=== PATIENT | male | born 1970 | race Caucasian/White ===

== ENCOUNTER → 2018-03-08 08:33 | Outpatient (CLI) | payer MEDICAID, SELFPAY ==
[2018-03-08 11:02] LABS: Basophils # 0.1 K/mm3 (0-0.2); Basophils % 0.5 % (0.1-2.0); Eosinophils # 0.3 K/mm3 (0.0-0.4); Eosinophils % 2.7 % (0.1-12.0); Hematocrit 45.2 % (42.0-52.0); Hemoglobin 14.3 g/dL (14.1-18.0); Mean Corpuscular HGB Conc 31.6 g/dL (31.8-35.4); Mean Corpuscular Hemoglobin 25.1 pg (27.0-31.2); Mean Corpuscular Volume 79.4 fl (80-94); Mean Platelet Volume 6.3 fl (7.4-10.4); Monocytes # 0.8 K/mm3 (0.1-1.0); Monocytes % 7.4 % (1.7-9.3); Neutrophils # 5.1 K/mm3 (1.8-7.8); Neutrophils % 50.4 % (37.0-80.0); Platelet Count 276 K/mm3 (142-424); Red Cell Distribution Width 13.9 % (11.5-17.5); White Blood Count 10.1 K/mm3 (4.8-10.8)
[2018-03-08 13:03] LABS: Alanine Aminotransferase 75 U/L (12-78); Albumin Level 3.8 gm/dL (3.4-5.0); Albumin/Globulin Ratio 1.3 (1.1-1.8); Alkaline Phosphatase 94 U/L (46-116); Anion Gap 13.4 mEq/L (5-15); Aspartate Amino Transferase 36 U/L (15-37); Bilirubin,Total 0.3 mg/dL (0.2-1.0); Blood Urea Nitrogen 13 mg/dL (7-18); Calcium 8.6 mg/dL (8.5-10.1); Carbon Dioxide 27 mmol/L (21.0-32.0); Chloride 105 mmol/L (98-107); Cholesterol 204 mg/dL (140-200); Creatinine,Serum 0.67 mg/dL (0.70-1.30); Estimated Glomerular Filt Rate 128 ml/min (>60); GFR (African American) 155 ML/MIN (>60); Globulin 2.9 gm/dl (1.3-3.2); Glucose 92 mg/dL (74-106); HDL Cholesterol 41 mg/dL (27-67); LDL Cholesterol 116 mg/dL (0-130); Potassium 4.4 mmoL/L (3.5-5.1); Sodium 141 mmol/L (136-145); Thyroid Stimulating Hormone 1.68 uIU/ml (0.358-3.740); Total Protein,Serum 6.7 gm/dL (6.4-8.2); Triglycerides 235 mg/dL (30-200); VLDL Cholesterol 47 mg/dL (0-40)
== END ==
PROVIDERS: PCP Nurse Practitioner Family; Visit Provider Nurse Practitioner Family
DX: G89.29 Other chronic pain (principal); I10 Essential (primary) hypertension; M54.9 Dorsalgia, unspecified; R53.83 Other fatigue
CPT/HCPCS: 80053; 80061; 84436; 84443; 85025

== ENCOUNTER → 2021-11-30 06:35 | Outpatient (CLI) | payer OTHER, SELFPAY ==
[2021-11-29 19:11] LABS: Basophils # 0.1 K/mm3 (0-0.2); Basophils % 0.9 % (0.1-2.0); Eosinophils # 0.2 K/mm3 (0.0-0.4); Eosinophils % 2.6 % (0.1-12.0); Hematocrit 50.5 % (42.0-52.0); Hemoglobin 15.9 g/dL (14.1-18.0); Lymphocytes # 2.2 K/mm3 (0.7-4.5); Mean Corpuscular HGB Conc 31.5 g/dL (31.8-35.4); Mean Corpuscular Hemoglobin 25.4 pg (27.0-31.2); Mean Corpuscular Volume 80.7 fl (80-94); Mean Platelet Volume 7.1 fl (7.4-10.4); Monocytes # 0.5 K/mm3 (0.1-1.0); Monocytes % 7.6 % (1.7-9.3); Neutrophils % 56.8 % (37.0-80.0); Platelet Count 264 K/mm3 (142-424); Red Blood Count 6.26 M/mm3 (4.60-6.20)
[2021-11-29 19:17] LABS: Alanine Aminotransferase 46 U/L (12-78); Albumin Level 4.2 g/dl (3.5-5.0); Albumin/Globulin Ratio 1.6 (1.1-1.8); Alkaline Phosphatase 87 U/L (38-126); Anion Gap 9.5 mEq/L (5-15); Aspartate Amino Transferase 39 U/L (17-59); Bilirubin,Total 0.2 mg/dl (0.2-1.3); Blood Urea Nitrogen 17 mg/dl (9-20); Calcium 9.3 mg/dl (8.4-10.2); Carbon Dioxide 28 mmol/L (22.0-30.0); Chloride 105 mmol/L (98-107); Chol/HDL Ratio 5.3 (1-3.5); Cholesterol 244 mg/dl (140-200); Estimated Glomerular Filt Rate 120 ml/min (>60); GFR (African American) 145 ML/MIN (>60); Globulin 2.7 g/dL (1.3-3.2); Glucose 184 mg/dl (74-100); HDL Cholesterol 46 mg/dl (40-60); Potassium 4.5 mmoL/L (3.5-5.1); Sodium 138 mmol/L (136-145); Total Protein,Serum 6.9 g/dl (6.3-8.2); Triglycerides 327 mg/dl (30-150); VLDL Cholesterol 65 mg/dL (0-40)
[2021-11-29 19:29] LABS: Direct LDL Cholesterol 138.01 mg/dL (100-129)
[2021-11-29 19:51] LABS: Hemoglobin A1C 6.3 % (4.0-6.0)
== END ==
PROVIDERS: Visit Provider Nurse Practitioner Family
DX: R53.83 Other fatigue (principal); E11.9 Type 2 diabetes mellitus without complications; E78.5 Hyperlipidemia, unspecified; I10 Essential (primary) hypertension
CPT/HCPCS: 80053; 80061; 83036; 84443; 85025

== ENCOUNTER → 2021-12-05 12:50 | Outpatient (CLI) | payer OTHER, SELFPAY ==
--- NOTE | 2021-12-05 12:57 | CA_ITS ---
APPROVED REPORT EXAM: Comprehensive 2D, Doppler, and color-flow Echocardiogram [employer] Loader: Fatemeh Hopkins CRT Ht: 6 ft 4 in Wt: 335lbs BSA: 2.76 BP: 140/98 mmHg Indications: sob, asthma, smoker, htn 2D Dimensions LVOT 2.19 cm (M/F) 1.5-2.5 LA Volume 30.60 mL LA Volume Index 11.10 mL/m2 (M/F) 16-34 M-Mode Dimensions RVDd 2.37 cm (0.9-2.6) LA Diam 3.20 cm (1.9-4.0) LVDd 5.07 cm (3.5-5.7) Ao Diam 4.29 cm (2.0-3.7) LVDs 3.46 cm (3.5-5.7) IVSd 2.21 cm (0.6-1.1) PWd 0.89 cm (0.6-1.1) EF (Teich) 59.50% FS 31.80% EDV (Teich) 122.10 mL ESV (Teich) 49.50 mL LV Diastology E Decel Time 150.00 (160-240 msec) E/A Ratio 0.66 MED E' 5.30 (< 7 cm/sec) MED A' 10.00 cm/s E'/MED E' Ratio 11.72 (>14) LAT E' 8.00 (<10 cm/sec) LAT A' 10.30 cm/s E/LAT E' Ratio 7.76 (>14) Aortic Valve AO Peak GR. 10.00 mmHg Mitral Valve MV E Max Venkatesh. 62.00 (40-130 cm/s) MV A Velocity 94.00 (40-130 cm/s) E/A Ratio 0.66 MV Decel. Time 150.00 (160-240 ms) MV PHT 44.00 ms Pulmonary Valve PV Peak Velocity 156.00 (50-150 cm/s) Tricuspid Valve TR P. Velocity 183.00 cm/s RAP Estimate 10.00 mmHg RVSP 23.30 mmHg Left Ventricle Left atrium is mildly enlarged, left ventricle normal size mild concentric left ventricular hypertrophy, estimated ejection fraction 55% with no regional wall motion abnormality, grade 1 diastolic dysfunction seen without tissue Doppler evidence of raise left atrial pressure. Right Ventricle Right atrium and right ventricle are normal size and contractility. Aortic Valve Aortic valve is grossly normal, there is no aortic stenosis or aortic insufficiency. Mitral Valve Mitral valve grossly normal, there is trace mitral regurgitation. Tricuspid Valve Tricuspid valve grossly normal, there is trace tricuspid regurgitation, tricuspid regurgitation jet velocity is inadequate for calculation of the right ventricular systolic pressure. Pulmonic Valve Pulmonic valve is poorly visualized. Great Vessels Aortic root is normal size. Inferior vena cava is poorly visualized. Pericardium No significant pericardial effusion noted. Conclusion 1. Technically very difficult study because of the patient's factor and poor acoustic windows. 2. Normal left ventricular size preserved left ventricular systolic function, estimated ejection fraction 55% with no regional wall motion abnormality, grade 1 diastolic dysfunction seen without tissue Doppler evidence of raise left atrial pressure. 3. Trace mitral and tricuspid regurgitation. 4. No significant pericardial effusion. 5. Inferior vena cava is poorly visualized. Electronically signed by : Hank Chavez MD 12/06/2021 06:49:33
== END ==
PROVIDERS: Visit Provider Nurse Practitioner Family
DX: R06.02 Shortness of breath (principal)
CPT/HCPCS: 93306

== ENCOUNTER → 2021-12-20 14:14 | Outpatient (CLI) | payer OTHER, SELFPAY ==
--- NOTE | 2021-12-20 14:19 | XR_ITS ---
FINAL REPORT CLINICAL HISTORY: R Knee pain FINDINGS: RIGHT KNEE: Four views of the right knee obtained. There is no acute fracture or dislocation. There are 3 screws in the proximal tibia. Two of the screws are transversely oriented probably to secure a tibial plateau fracture. There is significant narrowing of the medial compartment joint space. There is subchondral sclerosis consistent with moderately advanced osteoarthritis. IMPRESSION: Postoperative changes with no acute fracture. Subchondral sclerosis consistent with moderately advanced osteoarthritis. Reviewed, Interpreted and Dictated by Brett Nicolas MD Transcribed by Nicol Mosquera Authenticated and [facility]
== END ==
PROVIDERS: PCP Nurse Practitioner Family; Visit Provider Nurse Practitioner Family
DX: M25.561 Pain in right knee (principal)
CPT/HCPCS: 73564

== ENCOUNTER → 2023-04-12 13:19 | Outpatient (CLI) | payer OTHER, SELFPAY ==
[2023-04-12 15:12] LABS: Basophils # 0.1 K/mm3 (0-0.2); Basophils % 0.7 % (0.1-2.0); Eosinophils # 0.2 K/mm3 (0.0-0.4); Eosinophils % 2.1 % (0.1-12.0); Hematocrit 49.3 % (42.0-52.0); Hemoglobin 15.8 g/dL (14.1-18.0); Lymphocytes # 2.8 K/mm3 (0.7-4.5); Lymphocytes % 34.4 % (10-50); Mean Corpuscular HGB Conc 32.1 g/dL (31.8-35.4); Mean Corpuscular Hemoglobin 25.6 pg (27.0-31.2); Mean Corpuscular Volume 79.9 fl (80-94); Mean Platelet Volume 7.5 fl (7.4-10.4); Monocytes # 0.6 K/mm3 (0.1-1.0); Monocytes % 7.5 % (1.7-9.3); Neutrophils # 4.5 K/mm3 (1.8-7.8); Neutrophils % 55.2 % (37.0-80.0); Platelet Count 263 K/mm3 (142-424); Red Blood Count 6.17 M/mm3 (4.60-6.20); White Blood Count 8.1 K/mm3 (4.8-10.8)
[2023-04-12 16:15] LABS: Alanine Aminotransferase 57 U/L (12-78); Albumin Level 4.3 g/dl (3.5-5.0); Albumin/Globulin Ratio 1.5 (1.1-1.8); Alkaline Phosphatase 73 U/L (38-126); Anion Gap 10.4 mEq/L (5-15); Aspartate Amino Transferase 41 U/L (17-59); Bilirubin,Total 0.4 mg/dl (0.2-1.3); Blood Urea Nitrogen 22 mg/dl (9-20); Calcium 8.6 mg/dl (8.4-10.2); Carbon Dioxide 26 mmol/L (22.0-30.0); Chloride 103 mmol/L (98-107); Chol/HDL Ratio 4.7 (1-3.5); Cholesterol 242 mg/dl (140-200); Estimated Glomerular Filt Rate 102 ml/min (>60); GFR (African American) 123 ML/MIN (>60); Globulin 2.8 g/dL (1.3-3.2); Glucose 122 mg/dl (74-100); HDL Cholesterol 51 mg/dl (40-60); Potassium 4.4 mmoL/L (3.5-5.1); Sodium 135 mmol/L (136-145); Total Protein,Serum 7.1 g/dl (6.3-8.2); Triglycerides 209 mg/dl (30-150); VLDL Cholesterol 42 mg/dL (0-40)
[2023-04-12 16:26] LABS: Direct LDL Cholesterol 144.75 mg/dL (100-129)
[2023-04-12 16:34] LABS: 25-OH Vitamin D, Total 35.7 ng/mL (30-100)
[2023-04-12 16:47] LABS: Prostate Specific Ag Screen 1.7 ng/ml (0.0-4.0); Thyroid Stimulating Hormone 1.27 uIU/mL (0.465-4.68)
[2023-04-12 17:01] LABS: Hemoglobin A1C 6.6 % (4.0-6.0)
== END ==
LOC: LAB.DROPOF 04-25 13:19
PROVIDERS: PCP Nurse Practitioner Family; Visit Provider Nurse Practitioner Family
DX: R06.02 Shortness of breath (principal); I10 Essential (primary) hypertension; E55.9 Vitamin D deficiency, unspecified; Z12.5 Encounter for screening for malignant neoplasm of prostate; Z79.899 Other long term (current) drug therapy
CPT/HCPCS: 36415; 80053; 80061; 82306; 83036; 84443; 85025; G0103

== ENCOUNTER → 2023-04-12 14:53 | Outpatient (CLI) | payer OTHER, SELFPAY | LOC: LAB 14:54 | PROVIDERS: PCP Nurse Practitioner Family; Visit Provider Nurse Practitioner Family | DX: E55.9 Vitamin D deficiency, unspecified (principal) ==

== ENCOUNTER 2024-04-20 09:48 | Emergency (ER) | payer OTHER, SELFPAY ==
[2024-04-20] VITALS (10 sets, daily range): BP systolic 124–145; BP diastolic 71–91; PULSE 82–110; RESP 18; TEMP 36.7–36.8; O2SAT 91–96; BMI 44.4
--- NOTE | 2024-04-20 09:52 | ECG_ITS ---
APPROVED REPORT Exam: Resting ECG HR:110 bpm ECG Measurements Heart Rate 110 AXES WY 136 P 69 QRSd 92 QRS 69 QT 333 T 62 QTc 398 Conclusion SINUS TACHYCARDIA ABNORMAL RHYTHM ECG UNCONFIRMED REPORT Electronically signed by : PEARL MALDONADO, 04/22/2024 07:08:13
--- NOTE | 2024-04-20 10:05 | XR_ITS ---
PROCEDURE INFORMATION: Exam: XR Chest Exam date and time: 04/20/2024 10:26 AM Age: 54 years old Clinical indication: Shortness of breath; Additional info: SOA, lifetime smoker TECHNIQUE: Imaging protocol: Radiologic exam of the chest. Views: 1 view. COMPARISON: No relevant prior studies available. FINDINGS: Lungs: No evidence of pneumonia or interstitial edema. Pleural spaces: Unremarkable. No pleural effusion. No pneumothorax. Heart/Mediastinum: Unremarkable. No cardiomegaly. Bones/joints: Unremarkable. IMPRESSION: No evidence of pneumonia or interstitial edema.
[2024-04-20 10:06] LABS: VBG Base Excess -5.8 mmol/L (-2.4-2.3); VBG HCO3 20.2 mmol/L (23-30); VBG PCO2 39.3 mmol/L (35-51); VBG PH 7.33 mmol/L (7.31-7.41); VBG PO2 111.3 mmol/L (28-40); VBG Total CO2 21.4 mmol/L (23-27)
[2024-04-20 10:07] LABS: Lactate Venous 5.9 mmol/L (0.4-2.0)
--- NOTE | 2024-04-20 10:07 | PC.NURSE ---
aware of vbg lactic of 5.9
--- NOTE | 2024-04-20 10:08 | PC.NURSE ---
I rounded on the pt. He complains of a MENDOZA, I notified Dr. Catalan. She is going to order medication. no other needs voiced. call tamez in reach.
[2024-04-20 10:11] LABS: Coronavirus 19, PCR Not Detected (NotDetected); Influenza A, PCR Not Detected (NotDetected); Influenza B, PCR Not Detected (NotDetected)
[2024-04-20 10:11] LABS: Microscopic, Urine URINE MICROSCOPIC (MICROSCOPIC)
[2024-04-20] MEDS: LACTATED RINGERS 1000ML 1,000 ML 999 ML IV (10:11)
--- NOTE | 2024-04-20 10:11 | ED_ITS ---
Discharge Plan Disposition Patient Disposition: Admitted Condition: Good Prescriptions Prescriptions: No Action lisinopril 20 mg tablet 20 mg PO DAILY Qty: 30 2RF hydrochlorothiazide 25 mg tablet 25 mg PO DAILY fluticasone furoate-vilanterol [Breo Ellipta] 100-25 mcg/dose blister with device 1 inh inhalation DAILY Clinical Impressions Clinical Impression: Pulmonary embolism Qualifiers: Pulmonary embolism type: single subsegmental (without acute cor pulmonale) Q ualified Code(s): I26.93 - Single subsegmental thrombotic pulmonary embolism without acute cor pulmonale Instructions Patient Instructions: DI for Altered Mental Status Print Language Print Language: Occitan Discharge ED Provider: Keyla Catalan General Adult HPI General Chief complaint: Altered Mental Status Stated complaint: unresponsive Time Seen by Provider: 04/20/24 09:50 Mode of Arrival: EMS Source of Information: Patient, Parent(s) and EMS Limitations: No Limitations Description of Symptoms (Recalled from ER Triage Doc. by RN): PT WAS UNRESPONSIVE THIS MORNING. MOTHER ATTEMPTED TO WAKE HIM UP MULTIPLE TIMES UNSUCCESSFULLY. History of Present Illness HPI narrative: Patient is a 54-year-old male presenting with altered mental status. Per EMS and patient's mother at bedside, EMS was called to the home when the patient would not wake up. Mom stated that she broke into the patient's room this morning after hearing a loud thud. She stated that he was snoring loudly and still in bed. She shook him and was able to wake him for approximately 5 minutes per her estimation. She then called EMS who had additional difficulty awakening the patient. Per EMS, patient had an oxygen saturation of 89% on room air on arrival. Patient quickly came up to 100% on a non-rebreather. Patient reportedly has a history of asthma and hypertension. Patient states he takes aspirin daily and took his morning medications today. Patient states he has otherwise been in his normal state of health and does not require oxygen at night. Patient denies headache, fever, chills, chest pain, shortness of breath, abdominal pain, nausea/vomiting, bowel or bladder dysfunction. Related Data Home Medications ?Medication ?Instructions ?Recorded ?Confirmed fluticasone furoate 100 1 inh inhalation DAILY 04/20/24 04/20/24 mcg-vilanterol 25 mcg/dose inhalation powder (Breo Ellipta) hydrochlorothiazide 25 mg tablet 25 mg PO DAILY 04/20/24 04/20/24 Previous Rx's ?Medication ?Instructions ?Recorded lisinopril 20 mg tablet 20 mg PO DAILY #30 tabs 04/15/24 Allergies Allergy/AdvReac Type Severity Reaction Status Date / Time Cephalosporins Allergy Verified 04/15/24 14:46 [facility] Disclaimer: The information contained in this section may have been updated after the patient was seen, as this information can be updated by other users. Medical History (Updated 04/20/24 @ 13:12 by Keyla Catalan MD) Right anterior knee pain Instability of left shoulder joint Upper respiratory tract infection SOB (shortness of breath) HTN (hypertension) Social History Smoking Status: Current every day smoker tobacco type: cigarettes packs per day: 1 alcohol intake: never substance use type: denies use current occupational status: disabled Travel in the last 8 weeks: None Have you lived/traveled outside US in past 30 days?: No Contact w/someone who lives/traveled outside US past 30 days?: No Exposure to someone with infectious disease in past 14 days?: No Do you have a fever (greater than 100.4 F or 38 C)?: No Have you tested positive for COVID-19: No Exposed to someone with COVID-19 in past 14 days?: No Do you have a sore throat?: No Do you have a cough?: No Do you have any weakness?: No Do you have any diarrhea?: No Are you experiencing any unusual bleeding?: No Do you have any muscle aches/pain?: No Do you have any abdominal pain?: No Are you experiencing loss of taste or smell?: No Other Medical History Have you received the Pneumonia Vaccine: Yes ROS Obtained: Yes All systems reviewed & no additional complaints except as documented Physical Exam General General appearance: alert, in no apparent distress and obese Head Head exam: atraumatic and normocephalic Eye Eye exam: Present PERRL and EOMI Neck Neck exam: Present full ROM Chest Chest inspection: Present normal inspection Respiratory Respiratory exam: Present normal lung sounds bilaterally; Absent respiratory distress, wheezes or stridor Cardiovascular Cardiovascular exam: Present regular rate and normal rhythm; Absent JVD Abdominal Exam Abdominal exam: Present soft and normal bowel sounds; Absent distention, tenderness or guarding Extremities Exam Extremities exam: Present normal inspection Neurological Exam Neurological exam: Present alert and oriented X3 Medical Decision Making Medical Records Screening: Per USPSTF and CDC recommendations, given the prevalence of disease in our region, it is our hospital?s policy to screen for HIV and viral Hepatitis for all patients aged 18 and over and those with ongoing risk factors. Cam Inquiry Pt receiving controlled substance: No Vital Signs: 04/20/24 09:49 04/20/24 09:59 04/20/24 10:30 Temperature 98.2 F Temperature Source Oral Pulse Rate 106 H 90 Pulse Rate [Right] 110 H Respiratory Rate 18 Blood Pressure 126/90 145/89 H Blood Pressure [Right Arm] 133/90 Blood Pressure Mean [Right Arm] 104 02 Sat by Pulse Oximetry 96 92 L 93 L Oxygen Delivery Method Room Air Room Air 04/20/24 11:00 04/20/24 11:31 04/20/24 12:01 Temperature Temperature Source Pulse Rate 89 86 89 Pulse Rate [Right] Respiratory Rate Blood Pressure 124/71 141/84 H 129/84 Blood Pressure [Right Arm] Blood Pressure Mean [Right Arm] 02 Sat by Pulse Oximetry 95 91 L 94 L Oxygen Delivery Method Room Air Room Air Room Air 04/20/24 12:29 04/20/24 12:45 Temperature Temperature Source Pulse Rate 103 H 85 Pulse Rate [Right] Respiratory Rate Blood Pressure 135/91 H Blood Pressure [Right Arm] Blood Pressure Mean [Right Arm] 02 Sat by Pulse Oximetry 94 L 96 Oxygen Delivery Method Lab Data Lab Results 04/20/24 09:54: WBC 11.7 H, RBC 6.06, Hgb 14.9, Hct 48.5, MCV 80.0, MCH 24.6 L, MCHC 30.7 L, RDW 13.7, Plt Count 262, MPV 8.7, Neut % (Auto) 44.7, Lymph % (Auto) 41.8, [place] % (Auto) 9.2, Eos % (Auto) 2.6, Baso % (Auto) 0.7, Neut # (Auto) 5.2, Lymph # (Auto) 4.9 H, [place] # (Auto) 1.1 H, Eos # (Auto) 0.3, Baso # (Auto) 0.1, D-Dimer 1.79 H, Sodium 135 L, Potassium 4.4, Chloride 103, Carbon Dioxide 22, Anion Gap 14.4, BUN 22 H, Creatinine 0.90, Estimated Creat Clear 118, Estimated GFR 89, Est GFR ( Amer) 107, Glucose 171 H, Calcium 9.2, Magnesium 2.2, Total Bilirubin 0.5, AST 64 H, ALT 81 H, Alkaline Phosphatase 68, Troponin I < 0.01, Total Protein 6.8, Albumin 4.1, Globulin 2.7, Albumin/Globulin Ratio 1.5 04/20/24 09:56: SARS-CoV-2 (PCR) Not detected, Influenza A Untype (PCR) Not detected, Influenza Type B (PCR) Not detected 04/20/24 10:01: VBG pH 7.33, VBG pCO2 39.3, VBG pO2 111.3 H, VBG HCO3 20.2 L, V BG Total CO2 21.4 L, VBG O2 Saturation 98.0 H, VBG Base Excess -5.8 L, VBG Lactic Acid 5.9 H 04/20/24 10:04: Urine Color Yellow, Urine Appearance Clear, Urine pH 5.5, Ur Specific [place] 1.025, Urine Protein 1+ A, Urine Glucose (UA) Negative, Urine Ketones Negative, Urine Blood Negative, Urine Nitrate Negative, Urine Bilirubin Negative, Urine Urobilinogen 0.2, Ur Leukocyte Esterase Negative, Urine RBC None, Urine WBC Occasional, Ur Squamous Epith Cells Occasional, Urine Bacteria Trace, Urine Opiates Screen Negative, Urine Methadone Screen Negative, Ur Barbituates Screen Negative, Ur Phencyclidine Scrn Negative, Ur Amphetamines Screen Negative, U Benzodiazepines Scrn Negative, Urine Cocaine Screen Negative, U Marijuana (THC) Screen Negative 04/20/24 09:54 04/20/24 09:54 Orders (Tests/Meds): ED MEDICATIONS Generic Name Dose Route Start Last Admin Trade Name Freq PRN Reason Stop Dose Admin Nicotine 14 mg 04/20/24 13:15 Nicotine 14mg/24hrs Patch TD 04/20/24 13:16 ONCE ONE Nicotine 14 mg 04/20/24 13:10 Nicotine 14mg/24hrs Patch TD 04/20/24 13:11 ONCE ONE Discontinued Medications Generic Name Dose Route Start Last Admin Trade Name Freq PRN Reason Stop Dose Admin Acetaminophen 1,000 mg 04/20/24 10:13 04/20/24 10:14 Acetaminophen 500mg Tab PO 04/20/24 10:14 1,000 mg ONCE ONE Administration Lactated Ringer's 1,000 mls @ 999 mls/hr 04/20/24 10:07 04/20/24 10:11 Lactated Ringer's 1000 Ml Bag IV 04/20/24 11:07 999 mls/hr .Q1H1M ONE Administration Iopamidol 90 ml 04/20/24 11:12 04/20/24 11:18 Iopamidol-370 (76%);100ml Bottle IV 04/20/24 11:13 90 ml ONCE ONE Administration Sodium Chloride 50 ml 04/20/24 11:12 04/20/24 11:17 0.9 % Sodium Chloride 50 Ml Vial IV 04/20/24 11:13 50 ml ONCE ONE Administration Sodium Chloride 10 ml 04/20/24 11:12 04/20/24 11:17 Sodium Chloride 0.9% 10ml Syr (Rad Only) IV 04/20/24 11:13 10 ml ONCE ONE Administration ORDERS Category Date Time Status CT angio chest PE protocol Stat Cat Scan 04/20/24 10:58 Completed CXR --portable [XR chest portable] Stat Exams 04/20/24 10:05 Completed CBC w/Auto Diff [Complete Blood Count Auto Diff] Stat Lab 04/20/24 09:54 Completed CMP [Comprehensive Metabolic Panel] Stat Lab 04/20/24 09:54 Completed D-Dimer Stat Lab 04/20/24 09:54 Completed HIV Combo Stat Lab 04/20/24 09:54 Received Hep C Ab with Reflex to RNA Stat Lab 04/20/24 09:54 Received MAG [Magnesium] Stat Lab 04/20/24 09:54 Completed Rapid PCR Covid and Flu A/B Stat Lab 04/20/24 09:56 Completed Trop I [Troponin I] Stat Lab 04/20/24 09:54 Completed Troponin I Q3H Lab 04/20/24 13:15 Ordered Troponin I Q3H Lab 04/20/24 16:15 Ordered UDS [Drug Screen,Urine] Stat Lab 04/20/24 10:04 Completed Urinalysis and Microscopic Stat Lab 04/20/24 10:04 Completed VBG [Venous Blood Gas] Stat RT 04/20/24 10:01 Completed ECG Data Tracing #1: I reviewed this ECG and interpreted as documented below: Sinus tachycardia without QTc prolongation, significant ST elevation/depression or evidence of acute ischemia ECG initial impression date: 04/20/24 ECG initial impression time: 09:54 Medical Decision Narrative: In summary, patient is a 54-year-old male presenting with altered mental status. Differential diagnosis includes but is not limited to, hypoxia/apnea secondary to STEVO, ACS, PE, substance use, URI, pneumonia, stroke, seizure, sepsis, among others. On arrival, patient is taken off of supplemental oxygen and remains with adequate saturations. Patient states he currently has no complaints and is unsure why he is here. Mom is also at bedside and states that this kind of thing has never happened to him before. Patient does also note that he smokes cigarettes and he makes them himself. Patient's medical history is significant for morbid obesity with BMI>44, asthma, tobacco use, hypertension. Will evaluate the patient from multiple avenues with troponin, EKG, CXR, VBG, viral swab, CBC with differential, CMP, magnesium, UDS and urinalysis with microscopy. Patient's VBG demonstrates pH of 7.33, decreased CO2 and bicarb with a lactic acid of 5.9. Patient given a liter of IV fluids. Patient's labs significant for leukocytosis, no anemia, no thrombocytopenia. Patient's D-dimer elevated at 1.79, CT PE ordered. Urinalysis without evidence of acute cystitis, UDS negative. Respiratory swab negative. CMP demonstrates hyperglycemia and slight elevation in LFTs. CXR personally reviewed by me and negative for acute consolidation, pleural effusion, pulmonary edema. CT PE reviewed by me and demonstrates a right non-obstructive superior branch PE without right heart strain. Final radiologic report notes occlusive/subocclusive PE without right heart strain. Based on the pulmonary embolism severity index, patient's scores 142 points which qualifies as very high risk for 30-day mortality. I discussed these findings with the patient and his mother at bedside who are in agreement with hospitalization for initiation of anticoagulation and further monitoring. I discussed with the hospitalist Dr. Tamayo who was in agreement and has accepted the patient for admission. Keyla Catalan MD PGY-3, Emergency Medicine Critical Care Critical Care Time Critical Care Time: No
[2024-04-20] MEDS: ACETAMINOPHEN 500MG TAB 1000 MG PO (10:14)
[2024-04-20 10:20] LABS: Appearance,Urine CLEAR (Clear); Bilirubin,Urine Negative (Negative); Blood, Urine Negative (Negative); Color,Urine YELLOW (Yellow); Glucose,Urine (UA) Negative (Negative); Ketones,Urine Negative (Negative); Leukocyte Esterase,Urine Negative (Negative); Nitrate,Urine Negative (Negative); PH,Urine 5.5 (5.0-8.5); Protein,Urine 1+ (Negative); Specific Gravity, Urine 1.025 (1.005-1.030); Urobilinogen,Urine 0.2 EU/dl (0.2)
[2024-04-20 10:20] LABS: Alanine Aminotransferase 81 U/L (12-78); Albumin Level 4.1 g/dl (3.5-5.0); Albumin/Globulin Ratio 1.5 (1.1-1.8); Alkaline Phosphatase 68 U/L (38-126); Aspartate Amino Transferase 64 U/L (17-59); Bilirubin,Total 0.5 mg/dl (0.2-1.3); Blood Urea Nitrogen 22 mg/dl (9-20); Calcium 9.2 mg/dl (8.4-10.2); Carbon Dioxide 22 mmol/L (22.0-30.0); Chloride 103 mmol/L (98-107); Creatinine Clearance Estimated 118 mL/min (50-200); Estimated Glomerular Filt Rate 89 ml/min (>60); GFR (African American) 107 ML/MIN (>60); Globulin 2.7 g/dL (1.3-3.2); Glucose 171 mg/dl (74-100); Magnesium 2.2 mg/dl (1.6-2.3); Sodium 135 mmol/L (136-145); Total Protein,Serum 6.8 g/dl (6.3-8.2)
[2024-04-20 10:23] LABS: D-Dimer 1.79 ug/mL (0.0-0.5)
[2024-04-20 10:32] LABS: Amphetamine/Metha Screen,Urine Negative ng/ml (<1000); Benzodiazepines Screen,Urine Negative ng/ml (<200)
[2024-04-20 10:33] LABS: Barbiturates Screen,Urine Negative ng/ml (<200)
[2024-04-20 10:34] LABS: Troponin I < 0.01 ng/ml (0.00-0.034)
[2024-04-20 10:34] LABS: Cannabinoid Screen,Urine Negative ng/ml (<50); Methadone Screen,Urine Negative ng/ml (<300)
[2024-04-20 10:35] LABS: Cocaine Screen,Urine Negative ng/ml (<300); Opiate Screen,Urine Negative ng/ml (<300)
[2024-04-20 10:36] LABS: Phencyclidine Screen,Urine Negative ng/ml (<25)
--- NOTE | 2024-04-20 10:45 | HMH.PHAINT1 ---
Pharmacy Intervention Comments: MEDICATION RECONCILIATION COMPLETED ON PATIENT USING EXTERNAL FILL HISTORY FROM PHARMACY. -PATRICIA NAVARRO, NISSAD
[2024-04-20 10:53] LABS: Hematocrit 48.5 % (42.0-52.0); Hemoglobin 14.9 g/dL (14.1-18.0); Mean Corpuscular HGB Conc 30.7 g/dL (31.8-35.4); Mean Corpuscular Hemoglobin 24.6 pg (27.0-31.2); Mean Platelet Volume 8.7 fl (7.4-10.4); Platelet Count 262 K/mm3 (142-424); Red Blood Count 6.06 M/mm3 (4.60-6.20); Red Cell Distribution Width 13.7 % (11.5-17.5); White Blood Count 11.7 K/mm3 (4.8-10.8)
[2024-04-20 10:54] LABS: Basophils % 0.7 % (0.1-2.0); Eosinophils # 0.3 K/mm3 (0.0-0.4); Eosinophils % 2.6 % (0.1-12.0); Lymphocytes # 4.9 K/mm3 (0.7-4.5); Lymphocytes % 41.8 % (10-50); Monocytes # 1.1 K/mm3 (0.1-1.0); Monocytes % 9.2 % (1.7-9.3); Neutrophils # 5.2 K/mm3 (1.8-7.8); Neutrophils % 44.7 % (37.0-80.0)
[2024-04-20 10:56] LABS: Basophils # 0.1 K/mm3 (0-0.2)
[2024-04-20 10:58] LABS: Anion Gap 14.4 mEq/L (5-15); Potassium 4.4 mmoL/L (3.5-5.1)
--- NOTE | 2024-04-20 10:58 | CT_ITS ---
PROCEDURE INFORMATION: Exam: CTA Chest With Contrast Exam date and time: 04/20/2024 11:12 AM Age: 54 years old Clinical indication: Shortness of breath; Additional info: Hypoxia, pos d-dimer TECHNIQUE: Imaging protocol: Computed tomographic angiography of the chest with contrast. Exam focused on the arteries. 3D rendering (Not supervised by radiologist): MIP and/or 3D reconstructed images were created by the technologist. Radiation optimization: All CT scans at this facility use at least one of these dose optimization techniques: automated exposure control; mA and/or kV adjustment per patient size (includes targeted exams where dose is matched to clinical indication); or iterative reconstruction. Contrast material: ISOVUE 370; Contrast volume: 90 ml; Contrast route: INTRAVENOUS (IV); COMPARISON: CR XR CHEST PORTABLE 04/20/2024 10:26 AM FINDINGS: Pulmonary arteries: There is a occlusive/subocclusive thrombus at the branching point of the right superior segmental pulmonary artery. Aorta: Unremarkable. No aortic aneurysm. No aortic dissection. Lungs: No evidence of consolidation or interlobular septal thickening. No suspicious pulmonary lesions. No pulmonary infarct Pleural spaces: No pneumothorax. No pleural effusion. Heart: Unremarkable. No cardiomegaly. No pericardial effusion. Heart RV/LV ratio: RV LV ratio is less than 1. Lymph nodes: Unremarkable. No enlarged lymph nodes. Bones/joints: No acute osseous abnormality. Soft tissues: Unremarkable. IMPRESSION: 1. There is a occlusive/subocclusive thrombus at the branching point of the right superior segmental pulmonary artery. 2. No right heart strain or pulmonary infarct.
[2024-04-20] MEDS: SODIUM CHLORIDE 0.9% 10ML SYR (RAD ONLY) 10 ML IV (11:17)
[2024-04-20] MEDS: 0.9 % SODIUM CHLORIDE 50 ML VIAL IV (11:17)
[2024-04-20] MEDS: IOPAMIDOL-370 (76%);100ML BOTTLE 90 ML IV (11:18)
--- NOTE | 2024-04-20 11:18 | PC.NURSE ---
Just got back from radiology at 1118
--- NOTE | 2024-04-20 11:49 | PC.NURSE ---
VRAD on phone with
[2024-04-20 12:01] LABS: Bacteria,Urine Trace /lpf; Squamous Epithelial Cell,Urine Occasional #/hpf (0-5); WBC,Urine Occasional #/hpf (0-3)
--- NOTE | 2024-04-20 13:08 | PC.NURSE ---
I rounded on the pt, he is requesting a nicotine patch. Dr. Catalan agreed. no other needs voiced. call tamez in reach.
--- NOTE | 2024-04-20 13:11 | PC.NURSE ---
SPOKE WITH HOUSE REGARDING A BED
--- NOTE | 2024-04-20 13:18 | PC.NURSE ---
pt states he wants to go home and is refusing admission.
[2024-04-20 13:42] LABS: HIV Combo NEGATIVE (Negative)
[2024-04-20 14:06] LABS: Reflex Lactic Add Lactic Reflex
[2024-04-20 15:36] LABS: Troponin I < 0.01 ng/ml (0.00-0.034)
[2024-04-21 10:08] LABS: HCV Ab Non Reactive (Non Reactive)
== END 2024-04-20 13:33 | disposition left against medical advice (07) ==
LOC: ER 13:12 → 2ND 13:23
PROVIDERS: Emergency Provider Student in an Organized Health Care Education/Training Program; PCP Nurse Practitioner Family
DX: I26.93 Single subsegmental thrombotic pulmonary embolism without acute cor pulmonale (principal); R41.82 Altered mental status, unspecified; R06.02 Shortness of breath
CPT/HCPCS: 71045; 71275; 80053; 80307; 81001; 82803; 83735; 84484; 85025; 85378; 86803; 87389; 87636; 93005; 96360; 99285; J7120; Q9967

== ENCOUNTER 2024-04-24 19:29 | Outpatient (CLI) | payer OTHER, SELFPAY ==
[2024-04-24 20:25] LABS: Hematocrit 51.7 % (42.0-52.0); Hemoglobin 15.8 g/dL (14.1-18.0); Mean Corpuscular Hemoglobin 24.8 pg (27.0-31.2); Red Blood Count 6.38 M/mm3 (4.60-6.20); White Blood Count 8.8 K/mm3 (4.8-10.8)
[2024-04-24 20:26] LABS: Basophils # 0.1 K/mm3 (0-0.2); Basophils % 0.7 % (0.1-2.0); Eosinophils # 0.2 K/mm3 (0.0-0.4); Eosinophils % 2.2 % (0.1-12.0); Lymphocytes # 2.6 K/mm3 (0.7-4.5); Mean Corpuscular HGB Conc 30.6 g/dL (31.8-35.4); Monocytes # 0.8 K/mm3 (0.1-1.0); Monocytes % 8.8 % (1.7-9.3); Neutrophils # 5.1 K/mm3 (1.8-7.8); Neutrophils % 57.5 % (37.0-80.0); Platelet Count 272 K/mm3 (142-424); Red Cell Distribution Width 13.9 % (11.5-17.5)
[2024-04-24 21:19] LABS: Alanine Aminotransferase 78 U/L (12-78); Albumin Level 4.6 g/dl (3.5-5.0); Albumin/Globulin Ratio 1.8 (1.1-1.8); Alkaline Phosphatase 79 U/L (38-126); Anion Gap 11.4 mEq/L (5-15); Aspartate Amino Transferase 60 U/L (17-59); Bilirubin,Total 0.7 mg/dl (0.2-1.3); Blood Urea Nitrogen 22 mg/dl (9-20); Calcium 9.8 mg/dl (8.4-10.2); Carbon Dioxide 30 mmol/L (22.0-30.0); Chloride 100 mmol/L (98-107); Chol/HDL Ratio 4.7 (1-3.5); Cholesterol 246 mg/dl (140-200); Estimated Glomerular Filt Rate 89 ml/min (>60); GFR (African American) 107 ML/MIN (>60); Globulin 2.5 g/dL (1.3-3.2); Glucose 128 mg/dl (74-100); HDL Cholesterol 52 mg/dl (40-60); Potassium 5.4 mmoL/L (3.5-5.1); Sodium 136 mmol/L (136-145); Total Protein,Serum 7.1 g/dl (6.3-8.2); Triglycerides 227 mg/dl (30-150); VLDL Cholesterol 45 mg/dL (0-40)
[2024-04-24 21:33] LABS: Direct LDL Cholesterol 160.15 mg/dL (100-129)
[2024-04-24 21:39] LABS: 25-OH Vitamin D, Total 23.7 ng/mL (30-100)
[2024-04-24 21:40] LABS: T4 (Thyroxine) 10.2 ug/dl (5.53-11.0)
[2024-04-24 21:53] LABS: Prostate Specific Ag Screen 2.4 ng/ml (0.0-4.0); Thyroid Stimulating Hormone 1.39 uIU/mL (0.465-4.68)
== END 2024-04-24 23:59 | disposition home or self-care (01) ==
LOC: LAB.DROPOF 19:30
PROVIDERS: PCP Nurse Practitioner Family; Visit Provider Nurse Practitioner Family
DX: Z12.5 Encounter for screening for malignant neoplasm of prostate (principal); Z11.59 Encounter for screening for other viral diseases; I10 Essential (primary) hypertension; Z91.89 Other specified personal risk factors, not elsewhere classified; E55.9 Vitamin D deficiency, unspecified; F17.210 Nicotine dependence, cigarettes, uncomplicated
CPT/HCPCS: 80050; 80053; 80061; 82306; 84436; 84443; 85025; G0103

== ENCOUNTER 2024-05-06 13:07 | Outpatient (CLI) | payer OTHER, SELFPAY ==
--- NOTE | 2024-05-06 13:08 | US_ITS ---
FINAL REPORT CLINICAL HISTORY: elevated lft COMPARISON: None FINDINGS: Sonographic images of the right upper quadrant were obtained. The pancreas is partially obscured. The liver has a coarsened echotexture consistent with diffuse fatty infiltration. The gallbladder appears normal without evidence of gallstones or sludge.There is no evidence of biliary ductal dilatation.The common duct measures 3 mm. Limited images of the right kidney are unremarkable. IMPRESSION: Fatty liver. Reviewed, Interpreted and Dictated by Brett Nicolas MD Transcribed by Whit Marrero Authenticated and [facility]
--- NOTE | 2024-05-06 13:08 | US_ITS ---
FINAL REPORT TECHNIQUE: Real-time grayscale and color ultrasound of the thyroid was performed. CLINICAL HISTORY: enlarged thyroid COMPARISON: None FINDINGS: The thyroid gland is mildly enlarged measuring 45 x 20 x 26 mm on the right and 54 x 16 x 24 mm on the left. The isthmus measures 3 mm. The parenchyma is unremarkable . Nodules: No mass or nodule identified. IMPRESSION: Mildly enlarged thyroid without evidence of mass or nodule. Reviewed, Interpreted and Dictated by Brett Nicolas MD Transcribed by Whit Marrero Authenticated and [facility]
--- NOTE | 2024-05-06 13:36 | CA_ITS ---
APPROVED REPORT EXAM: Comprehensive 2D, Doppler, and color-flow Echocardiogram Doctor Of Nurse Anesthesia Practice: Joelle [facility], [facility], RVS Ht: 6 ft 4 in Wt: 352lbs BSA: 2.82 BP: 124/83 mmHg Indications: AARON, Smoker, HTN, Morbid obesity, hx-PE Echo Enhancing Agent Comments: Technically limited windows due extreme body habitus 2D Dimensions IVSd 1.16 cm LVEF (Visual) 67.40 % PWd 1.22 cm LA Volume 49.90 mL LVDd 5.42 cm LA Volume Index 17.30 mL/m2 (M/F) 16-34 LVDs 3.37 cm Left Atrium 3.79 cm M-Mode Dimensions RVDd 2.48 cm (0.9-2.6) LA Diam 3.47 cm (1.9-4.0) LVDd 5.22 cm (3.5-5.7) LVDs 3.70 cm (3.5-5.7) IVSd 1.37 cm (0.6-1.1) PWd 1.26 cm (0.6-1.1) EF (Teich) 55.50% EPSs 0.30 cm FS 29.10% EDV (Teich) 130.70 mL TAPSE 2.20 (<1.7) ESV (Teich) 58.10 mL LV Diastology E Decel Time 187 (160-240 msec) E/A Ratio 0.78 MED A' 13.30 cm/s LAT A' 10.20 cm/s Aortic Valve FLOR Index 0.77 cm2/m2 AoV Peak Venkatesh. 123.0 (50-130 cm/s) AO Peak GR. 6.00 mmHg AO Mean GR. 3.10 (<5 mmHg) AO VTI 23.0 (18-25 cm) FLOR (VTI) 2.23 (2.5-4.5 cm2) Mitral Valve MV A Velocity 81.0 (40-130 cm/s) E/A Ratio 0.78 Pulmonary Valve PV Peak Velocity 87.0 (50-150 cm/s) Left Ventricle The left ventricle is normal size. The left ventricular systolic function is normal. The left ventricular ejection fraction is within the normal range. There is increased LV wall thickness. There is normal LV segmental wall motion. The left ventricular diastolic function is normal. LVEF is 55%. Right Ventricle Right ventricle is mildly dilated. The right ventricular systolic function is normal. Atria The left atrium size is normal. The right atrium size is normal. There is no Doppler evidence of interatrial shunt. Aortic Valve The aortic valve opens well. There is no aortic valvular stenosis. No aortic regurgitation is present. Mitral Valve The mitral valve is normal in structure. No evidence of mitral valve stenosis. Trace mitral regurgitation. Tricuspid Valve Tricuspid valve is grossly normal in structure and function. Trace tricuspid regurgitation. There is insufficient TR jet to estimate RVSP. Pulmonic Valve The pulmonary valve is normal in structure. Trace pulmonic regurgitation. Great Vessels The aortic root is normal in size. The ascending aorta is normal in size. IVC is normal in size and collapses >50% with inspiration. Pericardium There is no pericardial effusion. Other Information Study Quality: Fair Conclusion Normal biventricular systolic function. Mild RV dilation. No significant valvular stenosis or regurgitation. Electronically signed by : Julia Snowden MD 05/18/2024 13:51:30
== END 2024-05-06 23:59 | disposition home or self-care (01) ==
LOC: RAD 13:08
PROVIDERS: PCP Family Medicine; Visit Provider Family Medicine
DX: R06.02 Shortness of breath (principal); I26.93 Single subsegmental thrombotic pulmonary embolism without acute cor pulmonale; E66.9 Obesity, unspecified; Z68.41 Body mass index [BMI] 40.0-44.9, adult; R79.89 Other specified abnormal findings of blood chemistry
CPT/HCPCS: 76536; 76705; 93306

== ENCOUNTER 2024-05-20 14:32 | Outpatient (CLI) | payer OTHER, SELFPAY ==
[2024-05-21 15:17] LABS: Anti-Cardio Antibody IgM <9 MPL U/mL (0-12); Anti-Cardiolipin Antibody IgG <9 GPL U/mL (0-14); Beta-2 Glycoprotein I Ab, IgG <9 (0-20); Beta-2 Glycoprotein I Ab, IgM <9 (0-32)
[2024-05-23 15:09] LABS: Anti-Thrombin III Antigen 85 % (72-124); Antithrombin Activity 133 % (75-135); Protein C Functional 128 % (73-180); Protein S Functional 101 % (63-140)
== END 2024-05-20 23:59 | disposition home or self-care (01) ==
LOC: LAB 14:33
PROVIDERS: PCP Nurse Practitioner Family; Visit Provider Internal Medicine Medical Oncology
DX: I82.622 Acute embolism and thrombosis of deep veins of left upper extremity (principal); I26.93 Single subsegmental thrombotic pulmonary embolism without acute cor pulmonale
CPT/HCPCS: 36415; 81240; 81241; 85300; 85301; 85302; 85306; 86146; 86147